=== PATIENT | male | born 1965 | race Caucasian/White ===

== ENCOUNTER → 2016-08-26 | Day surgery (SDC) | payer BC ==
[~2016-08-26] VITALS: Ht 177.8 cm; Wt 104.3 kg
[~2016-08-26] MED LIST: AMBIEN CR12.5 MG PO; ANUSOL-HC25 MG R; ATIVAN0.5 MG PO; GAVILYTE-G WI4000 M1 PO; HYDROCODONE BIT1 T11 PO; KLONOPIN1 MG PO; LISINOPRIL10 M1 PO; MOTRIN800 MG PO; Minocycline HC100 MG PO; PROZAC10 MG PO; SILDENAFIL20 M1 PO
--- NOTE | ~2016-08-26 | PROC NOTE ---
[place], [place] PROCEDURE NOTE NAME: [facility] #: [id number] UNIT #: [id number] ROOM: DOCTOR: MAURICIO VANESSA MD BIRTHDATE: [birth year] DOS: 08/26/2016 PREOPERATIVE DIAGNOSIS: Screening examination. POSTOPERATIVE DIAGNOSIS: Colon polyps x 3. PROCEDURE: Colonoscopy with polypectomy. ENDOSCOPIST: Mauricio Vanessa M.D. COMMISSARY WORKER: [id number]. ANESTHESIA: MAC. INDICATIONS: This is a 50-year-old gentleman who is here for a screening colonoscopy examination. The procedure and its complications explained to the patient in detail preoperatively. Complications that were discussed included, but were not limited to bleeding, infection, missed lesions, colon perforation, and prolonged pain. He agreed to proceed. DESCRIPTION OF PROCEDURE: After identifying the patient, the patient was brought to the endoscopy suite and placed in the left lateral position. After IV sedation was administered, a digital rectal exam was performed, which was within normal limits. There was no blood on the examining finger, nor any masses that could be felt. An adult colonoscope was now introduced into the anal canal and advanced sequentially into the rectum, sigmoid colon, descending colon, transverse colon, and ascending colon up to the cecum. Towards the ascent towards the cecum, there was some stool that was identified and therefore irrigation was used to suck out all the stool. Upon reaching the cecum, the scope was withdrawn. At 65 cm, I identified a polyp that was removed with the help of a snare in its entirety. The cauterized site looked clean and there was no obvious bleeding. Upon further withdrawal, there were 2 other polyps that were visualized, which were rather large. One was at 35 cm from the anal verge and the other one was at 30 cm from the anal verge. Both these polyps were removed with the help of snare polypectomy. On further visualization of the biopsy sites, they were both found to be within normal limits without any evidence of bleeding. The rest of the colon looked normal without any other polyps or any other lesions. The scope was then withdrawn and the specimens were retrieved and sent for histopathological diagnosis. The patient was stable and taken to the recovery room in a stable fashion. There were no complications. Dr. Mauricio Vanessa, the attending endoscopist, was present throughout the operating case. I spoke with the father at the end of the procedure and told him to keep an eye on the patient's clinical condition, and should he develop any worsening abdominal pain or bleeding, to come into the Emergency Room right away. Based on these findings, the patient would most likely require another colonoscopy in the next 1-3 years depending on the biopsy report. If the biopsy shows no evidence of premalignant or malignant lesions, he would be recommend to have another colonoscopy in 10 years. I will discuss these findings with the patient in 2 weeks when he comes to see me in my office. [place], [place] PROCEDURE NOTE NAME: NORMA LUNA UNIT #: [id number] ROOM: DOCTOR: MAURICIO VANESSA MD BIRTHDATE: [birth year] Mauricio Vanessa MD CM:PROCNOTE:PROCEDURE NOTE [id number] MAURICIO VANESSA MD
== END | disposition home or self-care (01) ==
LOC: SDC 08-23 13:15
DX: Z12.11 Encounter for screening for malignant neoplasm of colon (principal); D12.5 Benign neoplasm of sigmoid colon; D36.10 Benign neoplasm of peripheral nerves and autonomic nervous system, unspecified; K63.5 Polyp of colon; F41.9 Anxiety disorder, unspecified; I10 Essential (primary) hypertension; F32.9 Major depressive disorder, single episode, unspecified; Z87.891 Personal history of nicotine dependence; Z82.49 Family history of ischemic heart disease and other diseases of the circulatory system

== ENCOUNTER → 2022-06-23 | Outpatient (CLI) | payer BC | END | disposition home or self-care (01) | LOC: US 09:30 | PROVIDERS: ATTEND Internal Medicine | DX: R10.9 Unspecified abdominal pain (principal) ==

== ENCOUNTER 2024-04-19 04:26 | Emergency (ER) | payer BC ==
[~2024-04-19] VITALS: Ht 177.8 cm; Wt 113.4 kg
[2024-04-19] MEDS ORDERED: Tdap Vaccine 0.5 ML SYR (Adult Vaccine) IM ONE (04:40)
[2024-04-19] MEDS ORDERED: Bacitracin Zinc 14 GM TUBE T ONE (06:25)
== END 2024-04-19 06:31 | disposition home or self-care (01) ==
LOC: ED 04:26
DX: S01.81XA Laceration without foreign body of other part of head, initial encounter (principal); Z88.0 Allergy status to penicillin; Z91.013 Allergy to seafood; Z90.49 Acquired absence of other specified parts of digestive tract; Z98.890 Other specified postprocedural states; W18.2XXA Fall in (into) shower or empty bathtub, initial encounter; Y93.E1 Activity, personal bathing and showering; Y92.002 Bathroom of unspecified non-institutional (private) residence as the place of occurrence of the external cause; Y99.0 Civilian activity done for income or pay